=== PATIENT | male | born 1945 | race Caucasian/White ===

== ENCOUNTER → 2016-11-29 | Outpatient (CLI) | payer OTHER, MEDICARE ==
[~2016-11-29] MED LIST: ALBUTEROL INH INH; ANDROGEL; ASPIRIN325 PO; ASTELIN30 ML NASAL; ATROVENT15 ML NS; ATROVENT30 ML NS; AZELASTINE137 MCG/0. NASAL; CENTRUM SILVER1 EAC2 PO; CENTRUM SILVER1 EAC4 PO; CIPRO500 MG PO; CRESTOR40 MG PO; FLOMAX0.4 MG PO; HYDROCODONE-AP1 EAC6 PO; ISTALOL 0.5% OP; LIPITOR40 MG PO; LOSARTAN-HCTZ1 EAC3 PO; LOVAZA1000 MG PO; MELOXICAM7.5 MG; METFORMIN HCL500 MG PO; MICARDIS HCT 41 EACH; MICARDIS HCT 41 EACH PO; MULTIVITAMINS; NIASPAN ER 101000 M1 PO; PLAVIX 75 MG TA75 MG PO; PROAIR HFA8.5 GM INH; SINGULAIR 10 MG10 M1 PO; TESTOSTERONE PUMP; TIMOLOL MA0.5 %/5 M2 OPHTHALMIC; TOPROL XL50 MG PO; VENTOLIN HFA INH8 GM INH; XALATAN2.5 ML OPHTHALMIC
--- NOTE | ~2016-11-29 | EKG ---
[address] [employer] [place] [address] ELECTROCARDIOGRAM REPORT Name: BELIA SCHMITT Room #: REG CLI [facility]#: [id number] Admission: 11/29/16 Attend Phys: Luis Lawrence MD Discharge: Date of : 45 Report #: [id number] THIS REPORT FOR: //name// [facility] Test Date: 2016-11-29 Test Time: 15:27:59 Pat Name: BELIA SCHMITT Department: Room: Gender: M Manager Valuation: [address] : 1945 Requested By: Luis Lawrence Order Number: [id number] MD: Cooper Bee Measurements Intervals [place] Rate: 88 P: 38 MA: 186 QRS: 92 QRSD: 98 T: -6 QT: 351 QTc: 425 Interpretive Statements Sinus rhythm Borderline T abnormalities, inferior leads Compared to ECG 08/16/2011 09:13:16 Ventricular premature complex(es) no longer present Electronically Signed On 11-30-2016 16:33:14 CDT by Cooper Bee [email or web address] <ELECTRONICALLY SIGNED> By: Cooper Bee MD, [facility] 11/30/16 1633 1527 1527 Cooper Bee MD, [facility] /EPI
== END ==
LOC: RAD 03:30
DX: J18.9 Pneumonia, unspecified organism (principal)